=== PATIENT | male | born 1960 | race Caucasian/White ===

== ENCOUNTER 2016-06-09 19:28 | Emergency (ER) | payer OTHER ==
[~2016-06-09] VITALS: Ht 177.8 cm; Wt 85.0 kg
[~2016-06-09 19:28] MED LIST: ASPIR 8181 M1 PO; ATARAX,VISTARIL25 MG PO; ATARAX,VISTARIL50 MG PO; ATENOLOL; ATENOLOL100 MG PO; ATENOLOL25 MG PO; ATIVAN0.5 MG PO; ATIVAN1 MG PO; ATIVAN2 MG PO; Aspirin PO; BACLOFEN10 MG PO; CLONAZEPAM1 MG PO; DEXILANT60 MG PO; DURAGESIC75 MCG TD; FLEXERIL10 MG PO; KEPPRA750 MG PO; KLONOPIN1 MG PO; Keppra PO; LIBRIUM25 MG PO; LIDODERM 5% P1 PATCH TD; LISINOPRIL2.5 MG PO; LISINOPRIL20 MG PO; LISINOPRIL40 MG PO; LITE COAT ASPI325 M1 PO; LORAZEPAM1 MG PO; LYRICA100 MG PO; LYRICA150 MG PO; LYRICA50 MG PO; LYRICA75 MG PO; MEDROL DOSEPAK4 MG PO; MEN'S MULTI-VI1 EACH PO; MIRTAZAPINE30 MG PO; MOBIC7.5 MG PO; MULTIPLE VITAM1 EACH PO; NEXIUM20 MG PO; OXYCODONE HCL10 MG PO; OXYCODONE HCL5 MG PO; PERCOCET 10/1 TABLET PO; PERCOCET 5/31 TABLET PO; PREVACID30 MG PO; PROAIR HFA8.5 GM IH; PriLOSEC PO; RANITIDINE HCL150 MG PO; REMERON15 M2 PO; REMERON30 M2 PO; ROXICODONE5 MG PO; SERTRALINE HCL100 MG PO; SKELAXIN800 MG PO; TENORMIN25 MG PO; TRAZODONE HCL100 MG PO; TRAZODONE HCL50 MG PO; TYLENOL WITH C1 EACH PO; ULTRAM50 MG PO; WELLBUTRIN SR100 MG PO; Wellbutrin SR PO; XANAX0.25 MG PO; ZANAFLEX2 MG PO; ZANTAC150 MG PO; ZOFRAN ODT4 MG PO; ZOFRAN ODT8 MG PO; ZOFRAN4 MG PO; ZOFRAN8 MG PO; ZOLOFT100 MG PO; Zestril,Prinivil PO
[2016-06-09 21:23] VITALS: BP 175/858
== END 2016-06-09 21:29 | disposition home or self-care (01) ==
LOC: EME 19:28
DX: M54.9 Dorsalgia, unspecified (principal); G89.29 Other chronic pain; I10 Essential (primary) hypertension; F17.200 Nicotine dependence, unspecified, uncomplicated; Z76.0 Encounter for issue of repeat prescription; Z88.6 Allergy status to analgesic agent
CPT/HCPCS: 99281; 99284

== ENCOUNTER → 2016-06-27 17:31 | Emergency (ER) | payer OTHER ==
[~2016-06-27] VITALS: Ht 177.8 cm; Wt 90.1 kg
[~2016-06-27 17:31] MED LIST changes: +PEPCID20 MG PO
[2016-06-27 18:20] VITALS: BP 117/93
[2016-06-27 18:42] LABS: HEMATOCRIT 39.8 % (38.0-50.0); MCHC 33.9 G/DL (30.0-36.0); MCV 82.6 FL (86-99); PLATELET COUNT 244 K/uL (156-360); RBC DIS.WIDTH-CV 14.5 % (11.8-14.6); RBC DIS.WIDTH-SD 43.1 % (39-53); RED BLOOD COUNT 4.82 M/uL (4.00-5.50); WHITE BLOOD COUNT 7.6 K/uL (4.1-10.2)
[2016-06-27 18:57] LABS: CHLORIDE 103 mEq/L (99-109); POTASSIUM 4.3 mEq/L (3.7-5.4); SODIUM 134 mEq/L (136-147)
[2016-06-27 18:59] LABS: GLUCOSE 113 mg/dL (70-99)
[2016-06-27 19:01] LABS: ANION GAP 11 MEQ/L (2-14)
[2016-06-27 19:02] LABS: TROP-I INTERPRETATION NEGATIVE; TROPONIN-I < 0.01 ng/mL (0.0-0.30)
[2016-06-27 19:03] LABS: GFR ESTIMATE (CALCULATED) > 59 mL/min/
[2016-06-27 19:04] LABS: UREA NITROGEN (BUN) 7 mg/dL (9-23)
== END | disposition left against medical advice (07) ==
LOC: EME 17:31
DX: R07.89 Other chest pain (principal); R06.89 Other abnormalities of breathing; Z53.21 Procedure and treatment not carried out due to patient leaving prior to being seen by health care provider
CPT/HCPCS: 71020; 80048; 84484; 85027; 93005

== ENCOUNTER 2016-07-01 19:58 | Emergency (ER) | payer OTHER ==
[~2016-07-01] VITALS: Ht 177.8 cm; Wt 88.6 kg
[~2016-07-01 19:58] MED LIST changes: -PEPCID20 MG PO
[2016-07-01 20:43] LABS: HEMATOCRIT 40.2 % (38.0-50.0); MCH 28.5 PG (29.0-34.0); MCHC 35.6 G/DL (30.0-36.0); MCV 80.2 FL (86-99); MEAN PLAT.VOLUME 10.3 uM^3 (9.0-12.4); PLATELET COUNT 233 K/uL (156-360); RBC DIS.WIDTH-CV 14.2 % (11.8-14.6); RED BLOOD COUNT 5.01 M/uL (4.00-5.50); WHITE BLOOD COUNT 7.1 K/uL (4.1-10.2)
[2016-07-01 20:53] LABS: CHLORIDE 104 mEq/L (99-109); POTASSIUM 3.9 mEq/L (3.7-5.4); SODIUM 136 mEq/L (136-147)
[2016-07-01 20:55] LABS: GLUCOSE 102 mg/dL (70-99)
[2016-07-01 20:56] LABS: ANION GAP 13 MEQ/L (2-14)
[2016-07-01 20:59] LABS: GFR ESTIMATE (CALCULATED) > 59 mL/min/
[2016-07-01 21:00] LABS: UREA NITROGEN (BUN) 7 mg/dL (9-23)
[2016-07-01 21:03] LABS: TROP-I INTERPRETATION NEGATIVE; TROPONIN-I < 0.01 ng/mL (0.0-0.30)
[2016-07-01] MEDS ORDERED: PEPCID20 MG PO (21:12)
[2016-07-01] MEDS ORDERED: LIBRIUM25 MG PO (21:12)
[2016-07-01 21:45] VITALS: BP 165/111
== END 2016-07-01 22:00 | disposition home or self-care (01) ==
LOC: EME → EDBD 19:58 → EME 19:58
PROVIDERS: Emergency Medicine
DX: G89.29 Other chronic pain (principal); F41.9 Anxiety disorder, unspecified; Z76.0 Encounter for issue of repeat prescription; R73.9 Hyperglycemia, unspecified; R11.2 Nausea with vomiting, unspecified; F17.200 Nicotine dependence, unspecified, uncomplicated
CPT/HCPCS: 80048; 84484; 85027; 93005; 99281; 99284

== ENCOUNTER 2016-07-17 21:28 | Emergency (ER) | payer OTHER ==
[~2016-07-17] VITALS: Ht 177.8 cm; Wt 86.0 kg
[~2016-07-17 21:28] MED LIST changes: +PEPCID20 MG PO
[2016-07-17] MEDS ORDERED: ATENOLOL100 MG PO (21:49)
[2016-07-17] MEDS ORDERED: LISINOPRIL40 MG PO (21:49)
[2016-07-17] MEDS ORDERED: OXYCONTIN10 MG PO (21:50)
[2016-07-17] MEDS ORDERED: OXYCODONE HCL5 MG PO (21:50)
[2016-07-17] MEDS ORDERED: LYRICA100 MG PO (21:51)
[2016-07-17] MEDS ORDERED: PANTOPRAZOLE SO40 MG PO (21:51)
[2016-07-17] MEDS ORDERED: RANITIDINE HCL150 MG PO (21:52)
[2016-07-17] MEDS ORDERED: MIRTAZAPINE45 MG PO (21:52)
[2016-07-17 22:09] VITALS: BP 175/113
== END 2016-07-17 22:11 | disposition home or self-care (01) ==
LOC: EME 21:28
DX: G62.9 Polyneuropathy, unspecified (principal); M79.1 Myalgia; G89.29 Other chronic pain; I10 Essential (primary) hypertension; F17.200 Nicotine dependence, unspecified, uncomplicated; Z88.6 Allergy status to analgesic agent
CPT/HCPCS: 99281; 99284; J3010

== ENCOUNTER 2016-07-19 01:48 | Emergency (ER) | payer OTHER ==
[~2016-07-19] VITALS: Ht 177.8 cm; Wt 86.0 kg
[~2016-07-19 01:48] MED LIST changes: +MIRTAZAPINE45 MG PO; +OXYCONTIN10 MG PO; +PANTOPRAZOLE SO40 MG PO
[2016-07-19 03:35] VITALS: BP 179/112
== END 2016-07-19 03:37 | disposition home or self-care (01) ==
LOC: EME 01:48
DX: G89.29 Other chronic pain (principal); M79.604 Pain in right leg; M79.605 Pain in left leg; I10 Essential (primary) hypertension; F41.9 Anxiety disorder, unspecified; Z79.891 Long term (current) use of opiate analgesic; F17.200 Nicotine dependence, unspecified, uncomplicated
CPT/HCPCS: 99281; 99284

== ENCOUNTER 2016-09-14 22:28 | Emergency (ER) | payer OTHER ==
[~2016-09-14] VITALS: Ht 177.8 cm; Wt 87.0 kg
[2016-09-14 23:47] VITALS: BP 193/109
== END 2016-09-14 23:48 | disposition home or self-care (01) ==
LOC: RME 22:28 → EME 22:28 → RME 23:48
DX: F41.9 Anxiety disorder, unspecified (principal); I10 Essential (primary) hypertension; K21.9 Gastro-esophageal reflux disease without esophagitis; F17.200 Nicotine dependence, unspecified, uncomplicated
CPT/HCPCS: 99281; 99283

== ENCOUNTER 2016-10-10 23:50 | Emergency (ER) | payer OTHER ==
[~2016-10-10] VITALS: Ht 177.8 cm; Wt 87.9 kg
[2016-10-11 00:34] LABS: HEMATOCRIT 39.3 % (38.0-50.0); MCH 29.2 PG (29.0-34.0); MCHC 35.6 G/DL (30.0-36.0); MEAN PLAT.VOLUME 10.7 uM^3 (9.0-12.4); PLATELET COUNT 184 K/uL (156-360); RBC DIS.WIDTH-SD 41.6 % (39-53); RED BLOOD COUNT 4.79 M/uL (4.00-5.50); WHITE BLOOD COUNT 8.3 K/uL (4.1-10.2)
[2016-10-11 00:48] LABS: CHLORIDE 98 mEq/L (99-109); POTASSIUM 3.7 mEq/L (3.7-5.4); SODIUM 130 mEq/L (136-147)
[2016-10-11 00:50] LABS: GLUCOSE 103 mg/dL (70-99)
[2016-10-11 00:51] LABS: ANION GAP 11 MEQ/L (2-14)
[2016-10-11 00:53] LABS: SERUM ETHYL ALCOHOL < 10 mg/dL
[2016-10-11 00:54] LABS: GFR ESTIMATE (CALCULATED) > 59 mL/min/
[2016-10-11 00:56] LABS: UREA NITROGEN (BUN) 4 mg/dL (9-23)
[2016-10-11 00:57] LABS: SALICYLATE < 5.0 MG/DL (15-30)
[2016-10-11 02:15] LABS: AMPHETAMINE NEGATIVE (500 ng/mL); BARBITURATES NEGATIVE (200 ng/mL); BENZODIAZEPINES PRESUMPTIVE POSITIVE (150 ng/mL); COCAINE NEGATIVE (150 ng/mL); INTERNAL CONTROLS VALID? YES; METHADONE NEGATIVE (200 ng/mL); METHAMPHETAMINE NEGATIVE (500 ng/mL); OPIATES (MORPHINE) NEGATIVE (100 ng/mL); OXYCODONE NEGATIVE (100 ng/mL); PHENCYCLIDINE NEGATIVE (25 ng/mL); PROPOXYPHENE NEGATIVE (300 ng/mL); THC CANNABINOIDS NEGATIVE (50 ng/mL); TRICYCLIC ANTIDEPRESSANTS NEGATIVE (300 ng/mL)
[2016-10-11 02:16] LABS: ADD MEDTOX COMMENT Y
[2016-10-11 02:50] VITALS: BP 153/102
[2016-10-11 03:19] LABS: BENZODIAZEPINES QUANT VALUE 0 NG/ML
[2016-10-11 03:22] LABS: BENZODIAZEPINES, URINE SCREEN Negative (200 ng/mL)
== END 2016-10-11 02:51 | disposition home or self-care (01) ==
LOC: EME 23:50
PROVIDERS: Emergency Medicine
DX: T42.4X1A Poisoning by benzodiazepines, accidental (unintentional), initial encounter (principal); E87.1 Hypo-osmolality and hyponatremia; I10 Essential (primary) hypertension; F17.200 Nicotine dependence, unspecified, uncomplicated; K21.9 Gastro-esophageal reflux disease without esophagitis; F41.0 Panic disorder [episodic paroxysmal anxiety]; G62.9 Polyneuropathy, unspecified; F32.9 Major depressive disorder, single episode, unspecified; G89.29 Other chronic pain; Z79.891 Long term (current) use of opiate analgesic; R47.9 Unspecified speech disturbances
CPT/HCPCS: 71010; 80048; 84999; 85027; 93005; 99281; 99284; G0480; J7030

== ENCOUNTER 2016-10-11 17:34 | Emergency (ER) | payer OTHER ==
[~2016-10-11] VITALS: Ht 177.8 cm; Wt 85.7 kg
[2016-10-11 19:42] VITALS: BP 177/88
== END 2016-10-11 19:43 | disposition home or self-care (01) ==
LOC: EME 17:34
DX: F41.9 Anxiety disorder, unspecified (principal); F13.239 Sedative, hypnotic or anxiolytic dependence with withdrawal, unspecified; I10 Essential (primary) hypertension; G89.29 Other chronic pain; Z79.891 Long term (current) use of opiate analgesic; F17.200 Nicotine dependence, unspecified, uncomplicated
CPT/HCPCS: 93005; 99281; 99284

== ENCOUNTER 2016-10-28 22:26 | Inpatient (IN) | payer OTHER ==
[~2016-10-28] VITALS: Ht 177.8 cm; Wt 85.0 kg
[2016-10-28 23:08] LABS: MCHC 35.2 G/DL (30.0-36.0); MCV 82.2 FL (86-99); MEAN PLAT.VOLUME 10.4 uM^3 (9.0-12.4); PLATELET COUNT 282 K/uL (156-360); RBC DIS.WIDTH-CV 13.4 % (11.8-14.6); RBC DIS.WIDTH-SD 39.8 % (39-53); RED BLOOD COUNT 5.11 M/uL (4.00-5.50); WHITE BLOOD COUNT 7.2 K/uL (4.1-10.2)
[2016-10-28 23:15] LABS: CHLORIDE 103 mEq/L (99-109); SODIUM 136 mEq/L (136-147)
[2016-10-28 23:17] LABS: GLUCOSE 100 mg/dL (70-99)
[2016-10-28 23:18] LABS: ANION GAP 12 MEQ/L (2-14)
[2016-10-28 23:20] LABS: SERUM ETHYL ALCOHOL < 10 mg/dL
[2016-10-28 23:21] LABS: GFR ESTIMATE (CALCULATED) > 59 mL/min/
[2016-10-28 23:23] LABS: UREA NITROGEN (BUN) 6 mg/dL (9-23)
[2016-10-28 23:24] LABS: SALICYLATE < 5.0 MG/DL (15-30)
[2016-10-28 23:43] LABS: AMPHETAMINE NEGATIVE (500 ng/mL); BARBITURATES NEGATIVE (200 ng/mL); BENZODIAZEPINES PRESUMPTIVE POSITIVE (150 ng/mL); COCAINE NEGATIVE (150 ng/mL); INTERNAL CONTROLS VALID? YES; METHADONE NEGATIVE (200 ng/mL); METHAMPHETAMINE NEGATIVE (500 ng/mL); OPIATES (MORPHINE) NEGATIVE (100 ng/mL); OXYCODONE NEGATIVE (100 ng/mL); PHENCYCLIDINE NEGATIVE (25 ng/mL); PROPOXYPHENE NEGATIVE (300 ng/mL); THC CANNABINOIDS NEGATIVE (50 ng/mL); TRICYCLIC ANTIDEPRESSANTS NEGATIVE (300 ng/mL)
[2016-10-28 23:44] LABS: ADD MEDTOX COMMENT Y
[2016-10-29 01:25] LABS: BENZODIAZEPINES QUANT VALUE 0 NG/ML; BENZODIAZEPINES, URINE SCREEN Negative (200 ng/mL)
[2016-10-29 06:29] VITALS: BP 161/107
[2016-10-29 07:47] VITALS: BP 159/90
[2016-10-29 15:15] VITALS: BP 132/84
[2016-10-30 07:27] VITALS: BP 171/103
[2016-10-30 11:26] LABS: CHLORIDE 111 mEq/L (99-109); SODIUM 142 mEq/L (136-147)
[2016-10-30 11:28] LABS: GLUCOSE 93 mg/dL (70-99)
[2016-10-30 11:29] LABS: ANION GAP 11 MEQ/L (2-14)
[2016-10-30 11:30] LABS: POTASSIUM 3.9 mEq/L (3.7-5.4); TOTAL BILIRUBIN 0.4 mg/dL (0.0-1.0)
[2016-10-30 11:32] LABS: ALKALINE PHOSPHATASE 91 IU/L (3-129); GFR ESTIMATE (CALCULATED) > 59 mL/min/
[2016-10-30 11:33] LABS: UREA NITROGEN (BUN) 7 mg/dL (9-23)
[2016-10-30 11:34] LABS: DIRECT BILIRUBIN 0.1 mg/dL (0.0-0.3)
[2016-10-30 15:41] VITALS: BP 136/79
[2016-10-31 07:39] VITALS: BP 202/98
[2016-10-31 07:40] VITALS: BP 194/84
[2016-10-31] MEDS ORDERED: DULOXETINE HCL30 MG PO (10:00)
== END 2016-10-31 10:51 | disposition home or self-care (01) | DRG 885 ==
LOC: EME → EDBD 22:26 → 1WEST 10-29 03:49 → EDOF 10-29 03:49 → 1WEST 10-29 05:36
PROVIDERS: Emergency Medicine; Nurse Practitioner Family
DX: F33.9 Major depressive disorder, recurrent, unspecified (principal); G89.4 Chronic pain syndrome; T42.4X1A Poisoning by benzodiazepines, accidental (unintentional), initial encounter; I10 Essential (primary) hypertension; F11.20 Opioid dependence, uncomplicated; F10.21 Alcohol dependence, in remission; F41.1 Generalized anxiety disorder; F41.0 Panic disorder [episodic paroxysmal anxiety]; K21.9 Gastro-esophageal reflux disease without esophagitis; G62.9 Polyneuropathy, unspecified; Z73.6 Limitation of activities due to disability; F19.10 Other psychoactive substance abuse, uncomplicated; M19.90 Unspecified osteoarthritis, unspecified site; Z91.018 Allergy to other foods; Z87.11 Personal history of peptic ulcer disease; Z60.2 Problems related to living alone
CPT/HCPCS: 71010; 80048; 80053; 82248; 84999; 85027; 90837; 93005; 97165 GO; 99281; 99285; G0480; J7030; Q0177

== ENCOUNTER 2016-12-13 09:09 | Emergency (ER) | payer OTHER ==
[~2016-12-13] VITALS: Ht 177.8 cm; Wt 81.3 kg
[~2016-12-13 09:09] MED LIST changes: +DULOXETINE HCL30 MG PO
[2016-12-13 10:36] LABS: HEMATOCRIT 44.6 % (38.0-50.0); MCH 28.7 PG (29.0-34.0); MEAN PLAT.VOLUME 10.3 uM^3 (9.0-12.4); PLATELET COUNT 294 K/uL (156-360); RBC DIS.WIDTH-CV 13.5 % (11.8-14.6); RED BLOOD COUNT 5.44 M/uL (4.00-5.50); WHITE BLOOD COUNT 10.4 K/uL (4.1-10.2)
[2016-12-13 11:11] LABS: ANION GAP 16 MEQ/L (2-14); CHLORIDE 96 MEQ/L (99-109); POTASSIUM 3.8 MEQ/L (3.7-5.4); SAMPLE HEMOLYSIS CHECK 0; SAMPLE ICTERIC CHECK 0; SAMPLE LIPEMIA CHECK 0; SODIUM 131 MEQ/L (136-147)
[2016-12-13 11:16] LABS: GFR ESTIMATE (CALCULATED) > 59 mL/min/; GLUCOSE 103 mg/dL (70-99); UREA NITROGEN (BUN) 6 mg/dL (9-23)
[2016-12-13 11:20] LABS: TROP-I INTERPRETATION NEGATIVE; TROPONIN-I 0.04 ng/mL (0.0-0.30)
[2016-12-13 13:17] LABS: D-DIMER ELISA 0.34 mg/L FEU (< 0.57)
[2016-12-13] MEDS ORDERED: LIBRIUM25 MG PO (13:54)
[2016-12-13 14:58] VITALS: BP 136/97
== END 2016-12-13 14:58 | disposition home or self-care (01) ==
LOC: EME 09:09
PROVIDERS: Emergency Medicine
DX: F10.239 Alcohol dependence with withdrawal, unspecified (principal); R00.0 Tachycardia, unspecified; F11.10 Opioid abuse, uncomplicated; K21.9 Gastro-esophageal reflux disease without esophagitis; F17.200 Nicotine dependence, unspecified, uncomplicated
CPT/HCPCS: 80048; 84484; 85027; 85379; 93005; 99281; 99285; J1630; J2060; J2405; J7030

== ENCOUNTER 2017-01-02 13:16 | Emergency (ER) | payer OTHER ==
[~2017-01-02] VITALS: Ht 177.8 cm; Wt 63.5 kg
[2017-01-02] MEDS ORDERED: OXYCODONE HCL10 MG PO (13:34)
[2017-01-02] MEDS ORDERED: ATIVAN1 MG PO (16:58)
[2017-01-02 16:59] VITALS: BP 121/91
== END 2017-01-02 17:01 | disposition home or self-care (01) ==
LOC: EME 13:16
DX: F41.9 Anxiety disorder, unspecified (principal); Z76.0 Encounter for issue of repeat prescription; I10 Essential (primary) hypertension; F17.200 Nicotine dependence, unspecified, uncomplicated
CPT/HCPCS: 99281; 99284

== ENCOUNTER 2017-01-04 12:11 | Emergency (ER) | payer OTHER ==
[~2017-01-04] VITALS: Ht 170.2 cm; Wt 80.3 kg
[2017-01-04 12:58] LABS: BASOPHIL COUNT 0.1 K/uL (0-0.1); EOSINOPHIL (%) 0.3 % (0-5); HEMATOCRIT 48.2 % (38.0-50.0); IMMATURE GRANULOCYTE (%) 0.4 % (0.0-0.7); IMMATURE GRANULOCYTE COUNT 0.1 K/uL; INSTRUMENT ABS NEUTROPHIL CT 9.2 K/uL; LYMPHOCYTE COUNT 1.6 K/uL (1.0-2.8); MCH 29.3 PG (29.0-34.0); MCHC 34.6 G/DL (30.0-36.0); MCV 84.6 FL (86-99); MEAN PLAT.VOLUME 10.8 uM^3 (9.0-12.4); MONOCYTE (%) 5.7 % (3-12); MONOCYTE COUNT 0.7 K/uL (0-0.8); NEUTROPHIL (%) 79.2 % (45-76); NEUTROPHIL COUNT 9.2 K/uL (1.8-6.4); PLATELET COUNT 322 K/uL (156-360); RBC DIS.WIDTH-CV 14.6 % (11.8-14.6); RBC DIS.WIDTH-SD 44.9 % (39-53); WHITE BLOOD COUNT 11.7 K/uL (4.1-10.2)
[2017-01-04 13:06] LABS: CHLORIDE 104 mEq/L (99-109); POTASSIUM 3.1 mEq/L (3.7-5.4); SODIUM 139 mEq/L (136-147)
[2017-01-04 13:08] LABS: GLUCOSE 127 mg/dL (70-99)
[2017-01-04 13:09] LABS: ANION GAP 15 MEQ/L (2-14)
[2017-01-04 13:11] LABS: SERUM ETHYL ALCOHOL < 10 mg/dL
[2017-01-04 13:12] LABS: GFR ESTIMATE (CALCULATED) > 59 mL/min/
[2017-01-04 13:13] LABS: UREA NITROGEN (BUN) 8 mg/dL (9-23)
[2017-01-04] MEDS ORDERED: MULTIVITAMIN1 EAC2 PO (13:14)
[2017-01-04] MEDS ORDERED: ASPIRIN325 MG PO (13:14)
[2017-01-04 13:47] LABS: ADD MIUA? YES; BILIRUBIN NEGATIVE; BLOOD NEGATIVE; COLOR YELLOW ((YELLOW)); GLUCOSE (STRIP) NEGATIVE; KETONES NEGATIVE; LEUKOCYTES NEGATIVE; NITRITE NEGATIVE; PROTEIN (STRIP) NEGATIVE; SPECIFIC GRAVITY 1.013 (1.000-1.030); UROBILINOGEN 0.2 MG/DL (0.2-1.0)
[2017-01-04 14:00] LABS: BACTERIA 2+ /HPF; EPITHELIAL CELLS RARE /HPF; HYALINE CASTS 0-5 /LPF; MUCUS 3+ /LPF; RED BLOOD CELLS 0-5 /HPF (0-5); WHITE BLOOD CELLS NONE SEEN /HPF (0-5)
[2017-01-04] MEDS ORDERED: ATIVAN0.5 MG PO (14:10)
[2017-01-04 14:17] LABS: AMPHETAMINE NEGATIVE (500 ng/mL); BARBITURATES NEGATIVE (200 ng/mL); BENZODIAZEPINES PRESUMPTIVE POSITIVE (150 ng/mL); COCAINE NEGATIVE (150 ng/mL); METHADONE NEGATIVE (200 ng/mL); METHAMPHETAMINE NEGATIVE (500 ng/mL); OPIATES (MORPHINE) NEGATIVE (100 ng/mL); PHENCYCLIDINE NEGATIVE (25 ng/mL); THC CANNABINOIDS NEGATIVE (50 ng/mL); TRICYCLIC ANTIDEPRESSANTS NEGATIVE (300 ng/mL)
[2017-01-04 14:18] LABS: ADD MEDTOX COMMENT Y; INTERNAL CONTROLS VALID? YES; OXYCODONE PRESUMPTIVE POSITIVE (100 ng/mL); PROPOXYPHENE NEGATIVE (300 ng/mL)
[2017-01-04 14:22] VITALS: BP 141/101
[2017-01-04 15:05] LABS: BENZODIAZEPINES, URINE SCREEN POSITIVE (200 ng/mL)
== END 2017-01-04 14:22 | disposition home or self-care (01) ==
LOC: EME 12:11
PROVIDERS: Emergency Medicine
DX: F41.1 Generalized anxiety disorder (principal); F32.9 Major depressive disorder, single episode, unspecified; E87.6 Hypokalemia; K21.9 Gastro-esophageal reflux disease without esophagitis; Z86.73 Personal history of transient ischemic attack (TIA), and cerebral infarction without residual deficits; F17.200 Nicotine dependence, unspecified, uncomplicated
CPT/HCPCS: 80048; 81003; 84999; 85025; 90839; 99281; 99284; G0480

== ENCOUNTER 2017-01-26 15:53 | Emergency (ER) | payer OTHER ==
[~2017-01-26] VITALS: Ht 177.8 cm; Wt 81.6 kg
[~2017-01-26 15:53] MED LIST changes: +ASPIRIN325 MG PO; +MULTIVITAMIN1 EAC2 PO
[2017-01-26] MEDS ORDERED: PEPCID40 MG PO (18:35)
[2017-01-26 18:50] VITALS: BP 172/104
[2017-01-27] MEDS ORDERED: LIBRIUM25 MG PO (21:31)
== END 2017-01-26 18:57 | disposition home or self-care (01) ==
LOC: EME 15:53
DX: F11.23 Opioid dependence with withdrawal (principal); Z76.5 Malingerer [conscious simulation]; Z86.73 Personal history of transient ischemic attack (TIA), and cerebral infarction without residual deficits; K21.9 Gastro-esophageal reflux disease without esophagitis; Z79.82 Long term (current) use of aspirin; Z79.891 Long term (current) use of opiate analgesic; F17.200 Nicotine dependence, unspecified, uncomplicated
CPT/HCPCS: 99281; 99283

== ENCOUNTER 2017-01-27 18:24 | Emergency (ER) | payer OTHER ==
[~2017-01-27] VITALS: Ht 177.8 cm; Wt 82.6 kg
[~2017-01-27 18:24] MED LIST changes: +PEPCID40 MG PO
[2017-01-27] MEDS ORDERED: LIBRIUM25 MG PO (21:31)
[2017-01-27 22:08] VITALS: BP 191/86
== END 2017-01-27 22:08 | disposition home or self-care (01) ==
LOC: EME 18:24
DX: F10.239 Alcohol dependence with withdrawal, unspecified (principal); E86.0 Dehydration; I10 Essential (primary) hypertension; K21.9 Gastro-esophageal reflux disease without esophagitis; G62.9 Polyneuropathy, unspecified; F32.9 Major depressive disorder, single episode, unspecified; F41.9 Anxiety disorder, unspecified; Z86.73 Personal history of transient ischemic attack (TIA), and cerebral infarction without residual deficits; F17.200 Nicotine dependence, unspecified, uncomplicated
CPT/HCPCS: 99281; 99285; J2060; J7030

== ENCOUNTER 2017-01-29 14:16 | Emergency (ER) | payer OTHER ==
[~2017-01-29] VITALS: Ht 177.8 cm; Wt 81.0 kg
[2017-01-29 15:35] LABS: HEMATOCRIT 43.5 % (38.0-50.0); MCH 28.9 PG (29.0-34.0); MCHC 35.4 G/DL (30.0-36.0); MCV 81.8 FL (86-99); MEAN PLAT.VOLUME 10.5 uM^3 (9.0-12.4); PLATELET COUNT 256 K/uL (156-360); RBC DIS.WIDTH-CV 13.9 % (11.8-14.6); RBC DIS.WIDTH-SD 40.7 % (39-53); RED BLOOD COUNT 5.32 M/uL (4.00-5.50); WHITE BLOOD COUNT 15.1 K/uL (4.1-10.2)
[2017-01-29 15:45] LABS: CHLORIDE 100 mEq/L (99-109); POTASSIUM 2.5 mEq/L (3.7-5.4); SODIUM 138 mEq/L (136-147)
[2017-01-29 15:47] LABS: GLUCOSE 95 mg/dL (70-99)
[2017-01-29 15:48] LABS: ANION GAP 17 MEQ/L (2-14)
[2017-01-29 15:49] LABS: TOTAL BILIRUBIN 0.9 mg/dL (0.0-1.0)
[2017-01-29 15:50] LABS: ALKALINE PHOSPHATASE 124 IU/L (3-129)
[2017-01-29 15:51] LABS: GFR ESTIMATE (CALCULATED) > 59 mL/min/
[2017-01-29 15:52] LABS: UREA NITROGEN (BUN) 5 mg/dL (9-23)
[2017-01-29 15:54] LABS: LIPASE 11 U/L (1.0-51.0)
[2017-01-29 16:00] LABS: TROP-I INTERPRETATION NEGATIVE; TROPONIN-I 0.02 ng/mL (0.0-0.30)
[2017-01-29 18:12] VITALS: BP 169/94
== END 2017-01-29 18:14 | disposition home or self-care (01) ==
LOC: EME 14:16
DX: F10.239 Alcohol dependence with withdrawal, unspecified (principal); E86.0 Dehydration; R10.9 Unspecified abdominal pain; E87.6 Hypokalemia; E87.2 Acidosis; K21.9 Gastro-esophageal reflux disease without esophagitis; G62.9 Polyneuropathy, unspecified; Z86.73 Personal history of transient ischemic attack (TIA), and cerebral infarction without residual deficits; F17.200 Nicotine dependence, unspecified, uncomplicated
CPT/HCPCS: 80053; 83690; 84484; 85027; 93005; 99281; 99285; J3360; J7030

== ENCOUNTER 2017-02-19 03:40 | Observation (INO) | payer OTHER ==
[~2017-02-19] VITALS: Ht 177.8 cm; Wt 84.6 kg
[2017-02-19 05:19] LABS: CHLORIDE 86 mEq/L (99-109)
[2017-02-19 05:22] LABS: GLUCOSE 111 mg/dL (70-99)
[2017-02-19 05:23] LABS: ANION GAP 11 MEQ/L (2-14)
[2017-02-19 05:24] LABS: TOTAL BILIRUBIN 0.6 mg/dL (0.0-1.0)
[2017-02-19 05:25] LABS: ALKALINE PHOSPHATASE 125 IU/L (3-129); GFR ESTIMATE (CALCULATED) > 59 mL/min/
[2017-02-19 05:26] LABS: UREA NITROGEN (BUN) 2 mg/dL (9-23)
[2017-02-19 05:29] LABS: LIPASE 10 U/L (1.0-51.0); POTASSIUM 3.8 mEq/L (3.7-5.4)
[2017-02-19 05:31] LABS: TROP-I INTERPRETATION NEGATIVE; TROPONIN-I < 0.01 ng/mL (0.0-0.30)
[2017-02-19 05:34] LABS: SODIUM 118 mEq/L (136-147)
[2017-02-19 05:43] LABS: MCH 29.7 PG (29.0-34.0); MCHC 37.2 G/DL (30.0-36.0); MCV 79.9 FL (86-99); MEAN PLAT.VOLUME 10.7 uM^3 (9.0-12.4); PLATELET COUNT 264 K/uL (156-360); RBC DIS.WIDTH-CV 13.2 % (11.8-14.6); RBC DIS.WIDTH-SD 38.3 % (39-53); RED BLOOD COUNT 4.88 M/uL (4.00-5.50); WHITE BLOOD COUNT 13.8 K/uL (4.1-10.2)
[2017-02-19 10:21] LABS: ADD MIUA? YES; BILIRUBIN NEGATIVE; BLOOD SMALL; COLOR STRAW ((YELLOW)); GLUCOSE (STRIP) NEGATIVE; KETONES NEGATIVE; LEUKOCYTES NEGATIVE; NITRITE NEGATIVE; PROTEIN (STRIP) NEGATIVE; SPECIFIC GRAVITY 1.003 (1.000-1.030); UROBILINOGEN 0.2 MG/DL (0.2-1.0)
[2017-02-19 10:41] LABS: BACTERIA NONE SEEN /HPF; EPITHELIAL CELLS NONE SEEN /HPF; MUCUS NONE SEEN /LPF; RED BLOOD CELLS RARE /HPF (0-5); UCUL ADDED? NO; WHITE BLOOD CELLS NONE SEEN /HPF (0-5)
[2017-02-19 11:04] VITALS: BP 156/79
[2017-02-19] MEDS ORDERED: CYMBALTA30 MG PO (12:07)
[2017-02-19] MEDS ORDERED: BUSPAR10 MG PO (12:09)
[2017-02-19] MEDS ORDERED: CARBAMAZEPINE200 MG PO (12:10)
[2017-02-19] MEDS ORDERED: PAROXETINE HCL20 MG PO (12:10)
[2017-02-19 12:32] VITALS: BP 120/70
[2017-02-19 15:39] VITALS: BP 111/60
[2017-02-19 15:51] LABS: POINT-OF-CARE METER ID UU13113725
[2017-02-19 19:50] VITALS: BP 170/90
[2017-02-20 04:18] VITALS: BP 173/94
[2017-02-20 06:21] LABS: HEMATOCRIT 39.8 % (38.0-50.0); MCH 28.9 PG (29.0-34.0); MCHC 34.7 G/DL (30.0-36.0); MCV 83.3 FL (86-99); MEAN PLAT.VOLUME 10.7 uM^3 (9.0-12.4); PLATELET COUNT 209 K/uL (156-360); RBC DIS.WIDTH-SD 42.6 % (39-53); RED BLOOD COUNT 4.78 M/uL (4.00-5.50)
[2017-02-20 06:47] LABS: ANION GAP 10 MEQ/L (2-14); CHLORIDE 99 MEQ/L (99-109); GFR ESTIMATE (CALCULATED) > 59 mL/min/; POTASSIUM 3.8 MEQ/L (3.7-5.4); SAMPLE HEMOLYSIS CHECK 0; SAMPLE ICTERIC CHECK 0; SAMPLE LIPEMIA CHECK 0; UREA NITROGEN (BUN) 2 mg/dL (9-23)
[2017-02-20 06:48] LABS: GLUCOSE 78 mg/dL (70-99); SODIUM 133 MEQ/L (136-147)
[2017-02-20 07:53] VITALS: BP 103/51
[2017-02-20] MEDS ORDERED: NICOTINE PATCH1 EAC2 TD (10:39)
[2017-02-20] MEDS ORDERED: ASPIRIN81 M2 PO (10:40)
[2017-02-20 11:17] LABS: AMPHETAMINES QUANT VALUE 0 NG/ML; BARBITUATES QUANT VALUE 0 NG/ML; BENZODIAZEPINES QUANT VALUE 0 NG/ML; BENZODIAZEPINES, URINE SCREEN Negative (200 ng/mL); MARIJUANA QUANT VALUE 0 NG/ML; OPIATES QUANTITATIVE VALUE 0 NG/ML; PHENCYCLIDINE QUANT VALUE 0 NG/ML
[2017-02-20 11:23] VITALS: BP 171/89
[2017-02-20 12:18] VITALS: BP 138/81
== END 2017-02-20 15:23 | disposition home or self-care (01) ==
LOC: EME → EDBD 03:40 → EME 03:40 → EDOF 07:43 → 5EAST 07:43 → ENRESERV 07:50 → CANRESERV 07:50 → ENRESERV 08:20 → 5EAST 10:36
PROVIDERS: Emergency Medicine; Internal Medicine
DX: R10.9 Unspecified abdominal pain (principal); R11.2 Nausea with vomiting, unspecified; R19.7 Diarrhea, unspecified; E87.1 Hypo-osmolality and hyponatremia; R51 Headache; G62.9 Polyneuropathy, unspecified; G89.29 Other chronic pain; M54.9 Dorsalgia, unspecified; Z79.891 Long term (current) use of opiate analgesic; I10 Essential (primary) hypertension; K21.9 Gastro-esophageal reflux disease without esophagitis; J44.9 Chronic obstructive pulmonary disease, unspecified; F17.210 Nicotine dependence, cigarettes, uncomplicated; Z87.898 Personal history of other specified conditions; D72.829 Elevated white blood cell count, unspecified; Z88.8 Allergy status to other drugs, medicaments and biological substances; Z91.018 Allergy to other foods; Z86.73 Personal history of transient ischemic attack (TIA), and cerebral infarction without residual deficits
CPT/HCPCS: 70450; 71020; 80048; 80053; 80306 90; 81003; 82436; 82533 91; 82948; 83690; 83930; 83935; 84300; 84443; 84484; 85027; 87040; 87493; 87506; 93005; 99202; 99281; 99285; G0378; J0360; J0780; J1200; J1650; J2270; J2405; J7030; S0028

== ENCOUNTER 2017-03-06 15:06 | Emergency (ER) | payer OTHER ==
[~2017-03-06] VITALS: Ht 177.8 cm; Wt 82.4 kg
[~2017-03-06 15:06] MED LIST changes: +ASPIRIN81 M2 PO; +BUSPAR10 MG PO; +CARBAMAZEPINE200 MG PO; +CYMBALTA30 MG PO; +NICOTINE PATCH1 EAC2 TD; +PAROXETINE HCL20 MG PO
[2017-03-06 15:56] LABS: CHLORIDE 104 mEq/L (99-109); SODIUM 134 mEq/L (136-147)
[2017-03-06 15:58] LABS: GLUCOSE 114 mg/dL (70-99)
[2017-03-06 15:59] LABS: ANION GAP 15 MEQ/L (2-14)
[2017-03-06 16:00] LABS: TOTAL BILIRUBIN 0.5 mg/dL (0.0-1.0)
[2017-03-06 16:01] LABS: ALKALINE PHOSPHATASE 117 IU/L (3-129)
[2017-03-06 16:02] LABS: GFR ESTIMATE (CALCULATED) > 59 mL/min/
[2017-03-06 16:03] LABS: UREA NITROGEN (BUN) 8 mg/dL (9-23)
[2017-03-06 16:05] LABS: LIPASE 17 U/L (1.0-51.0)
[2017-03-06 16:56] LABS: HEMATOCRIT 43.2 % (38.0-50.0); MCH 29.3 PG (29.0-34.0); MCHC 34.7 G/DL (30.0-36.0); MCV 84.4 FL (86-99); MEAN PLAT.VOLUME 11.6 uM^3 (9.0-12.4); PLATELET COUNT 252 K/uL (156-360); RBC DIS.WIDTH-CV 13.7 % (11.8-14.6); RBC DIS.WIDTH-SD 42.5 % (39-53); RED BLOOD COUNT 5.12 M/uL (4.00-5.50); WHITE BLOOD COUNT 8.5 K/uL (4.1-10.2)
[2017-03-06] MEDS ORDERED: ZOFRAN ODT4 MG PO (18:27)
[2017-03-06] MEDS ORDERED: REGLAN10 MG PO (18:27)
[2017-03-06 18:56] VITALS: BP 136/78
== END 2017-03-06 18:58 | disposition home or self-care (01) ==
LOC: EME 15:06
PROVIDERS: Nurse Practitioner Family
DX: R11.2 Nausea with vomiting, unspecified (principal); B34.9 Viral infection, unspecified; R10.9 Unspecified abdominal pain; G89.29 Other chronic pain; Z86.73 Personal history of transient ischemic attack (TIA), and cerebral infarction without residual deficits; G62.9 Polyneuropathy, unspecified; K21.9 Gastro-esophageal reflux disease without esophagitis; F32.9 Major depressive disorder, single episode, unspecified; M19.90 Unspecified osteoarthritis, unspecified site; Z88.8 Allergy status to other drugs, medicaments and biological substances; F17.200 Nicotine dependence, unspecified, uncomplicated; Z87.19 Personal history of other diseases of the digestive system
CPT/HCPCS: 80053; 83690; 85027; 85651; 86140; 99281; 99284; J1200; J1885; J2765; J3010; J7030

== ENCOUNTER 2017-03-07 22:07 | Emergency (ER) | payer OTHER ==
[~2017-03-07] VITALS: Ht 177.8 cm; Wt 81.4 kg
[~2017-03-07 22:07] MED LIST changes: +REGLAN10 MG PO
[2017-03-07 23:44] VITALS: BP 186/104
== END 2017-03-07 23:51 | disposition left against medical advice (07) ==
LOC: EME 22:07
DX: G43.909 Migraine, unspecified, not intractable, without status migrainosus (principal); R00.0 Tachycardia, unspecified; I10 Essential (primary) hypertension; K21.9 Gastro-esophageal reflux disease without esophagitis; F17.200 Nicotine dependence, unspecified, uncomplicated; F32.9 Major depressive disorder, single episode, unspecified; F41.9 Anxiety disorder, unspecified; Z86.73 Personal history of transient ischemic attack (TIA), and cerebral infarction without residual deficits; Z88.8 Allergy status to other drugs, medicaments and biological substances; Z87.19 Personal history of other diseases of the digestive system
CPT/HCPCS: 99281; 99285; J1100; J1200; J1885; J2765; J7030

== ENCOUNTER 2017-03-08 20:03 | Observation (INO) | payer OTHER ==
[~2017-03-08] VITALS: Ht 177.8 cm; Wt 80.2 kg
[2017-03-08 20:59] LABS: EOSINOPHIL (%) 0.1 % (0-5); IMMATURE GRANULOCYTE (%) 0.4 % (0.0-0.7); IMMATURE GRANULOCYTE COUNT 0.1 K/uL; LYMPHOCYTE COUNT 1.1 K/uL (1.0-2.8); MCH 28.9 PG (29.0-34.0); MCV 82.6 FL (86-99); MONOCYTE (%) 7.4 % (3-12); MONOCYTE COUNT 1.4 K/uL (0-0.8); NEUTROPHIL (%) 86.2 % (45-76); PLATELET COUNT 314 K/uL (156-360); RBC DIS.WIDTH-CV 13.6 % (11.8-14.6); RBC DIS.WIDTH-SD 41.1 % (39-53); RED BLOOD COUNT 5.57 M/uL (4.00-5.50); WHITE BLOOD COUNT 18.6 K/uL (4.1-10.2)
[2017-03-08 21:13] LABS: CHLORIDE 100 mEq/L (99-109); SODIUM 136 mEq/L (136-147)
[2017-03-08 21:14] LABS: GLUCOSE 150 mg/dL (70-99)
[2017-03-08 21:16] LABS: ANION GAP 17 MEQ/L (2-14)
[2017-03-08 21:17] LABS: SERUM ETHYL ALCOHOL < 10 mg/dL
[2017-03-08 21:18] LABS: GFR ESTIMATE (CALCULATED) > 59 mL/min/
[2017-03-08 21:19] LABS: UREA NITROGEN (BUN) 3 mg/dL (9-23)
[2017-03-08 21:28] LABS: POTASSIUM 2.9 mEq/L (3.7-5.4)
[2017-03-09 01:01] LABS: HEMATOCRIT 47.4 % (38.0-50.0); MCH 29.1 PG (29.0-34.0); MCV 83.2 FL (86-99); MEAN PLAT.VOLUME 11.4 uM^3 (9.0-12.4); PLATELET COUNT 320 K/uL (156-360); RBC DIS.WIDTH-CV 13.9 % (11.8-14.6); RBC DIS.WIDTH-SD 41.8 % (39-53); WHITE BLOOD COUNT 19.1 K/uL (4.1-10.2)
[2017-03-09 01:12] LABS: ADD MIUA? YES; BILIRUBIN SMALL; BLOOD NEGATIVE; COLOR AMBER ((YELLOW)); GLUCOSE (STRIP) NEGATIVE; KETONES 5; LEUKOCYTES NEGATIVE; NITRITE NEGATIVE; PROTEIN (STRIP) 100
[2017-03-09 01:15] LABS: AMPHETAMINE NEGATIVE (500 ng/mL); BARBITURATES NEGATIVE (200 ng/mL); BENZODIAZEPINES NEGATIVE (150 ng/mL); COCAINE NEGATIVE (150 ng/mL); INTERNAL CONTROLS VALID? YES; METHADONE NEGATIVE (200 ng/mL); METHAMPHETAMINE NEGATIVE (500 ng/mL); OPIATES (MORPHINE) NEGATIVE (100 ng/mL); OXYCODONE NEGATIVE (100 ng/mL); PHENCYCLIDINE NEGATIVE (25 ng/mL); PROPOXYPHENE NEGATIVE (300 ng/mL); THC CANNABINOIDS NEGATIVE (50 ng/mL); TRICYCLIC ANTIDEPRESSANTS NEGATIVE (300 ng/mL)
[2017-03-09 01:16] LABS: BACTERIA NONE SEEN /HPF; EPITHELIAL CELLS NONE SEEN /HPF; MUCUS TRACE /LPF; WHITE BLOOD CELLS 0-5 /HPF (0-5)
[2017-03-09 01:16] LABS: CHLORIDE 101 mEq/L (99-109); POTASSIUM 2.8 mEq/L (3.7-5.4); SODIUM 138 mEq/L (136-147)
[2017-03-09 01:18] LABS: GLUCOSE 142 mg/dL (70-99)
[2017-03-09 01:19] LABS: ANION GAP 15 MEQ/L (2-14)
[2017-03-09 01:22] LABS: GFR ESTIMATE (CALCULATED) > 59 mL/min/
[2017-03-09 01:23] LABS: UREA NITROGEN (BUN) 4 mg/dL (9-23)
[2017-03-09] MEDS ORDERED: ASPIRIN81 M2 PO (01:37)
[2017-03-09] MEDS ORDERED: NICOTINE GUM4 MG BC (01:39)
[2017-03-09 03:18] VITALS: BP 144/88
[2017-03-09 04:45] LABS: EOSINOPHIL (%) 0.1 % (0-5); HEMATOCRIT 44.3 % (38.0-50.0); IMMATURE GRANULOCYTE (%) 0.5 % (0.0-0.7); IMMATURE GRANULOCYTE COUNT 0.1 K/uL; INSTRUMENT ABS NEUTROPHIL CT 13.9 K/uL; MCH 29.2 PG (29.0-34.0); MCHC 35.2 G/DL (30.0-36.0); MEAN PLAT.VOLUME 11.3 uM^3 (9.0-12.4); MONOCYTE (%) 8.8 % (3-12); MONOCYTE COUNT 1.5 K/uL (0-0.8); NEUTROPHIL (%) 84.1 % (45-76); NEUTROPHIL COUNT 13.9 K/uL (1.8-6.4); PLATELET COUNT 289 K/uL (156-360); RBC DIS.WIDTH-SD 42.2 % (39-53); RED BLOOD COUNT 5.34 M/uL (4.00-5.50); WHITE BLOOD COUNT 16.6 K/uL (4.1-10.2)
[2017-03-09 04:57] LABS: CHLORIDE 105 mEq/L (99-109); SODIUM 136 mEq/L (136-147)
[2017-03-09 04:59] LABS: GLUCOSE 166 mg/dL (70-99)
[2017-03-09 05:00] LABS: ANION GAP 13 MEQ/L (2-14); TOTAL BILIRUBIN 0.5 mg/dL (0.0-1.0)
[2017-03-09 05:01] LABS: ALKALINE PHOSPHATASE 108 IU/L (3-129)
[2017-03-09 05:03] LABS: DIRECT BILIRUBIN 0.2 mg/dL (0.0-0.3); GFR ESTIMATE (CALCULATED) > 59 mL/min/
[2017-03-09 05:04] LABS: LIPASE 5 U/L (1.0-51.0); UREA NITROGEN (BUN) 5 mg/dL (9-23)
[2017-03-09 05:09] LABS: POTASSIUM 3.5 mEq/L (3.7-5.4)
[2017-03-09 05:10] LABS: MAGNESIUM 1.7 mg/dL (1.3-2.7)
[2017-03-09 07:25] VITALS: BP 119/68
[2017-03-09 07:50] LABS: ADD MIUA? NO; BILIRUBIN NEGATIVE; BLOOD NEGATIVE; COLOR YELLOW ((YELLOW)); GLUCOSE (STRIP) NEGATIVE; KETONES NEGATIVE; LEUKOCYTES NEGATIVE; NITRITE NEGATIVE; PROTEIN (STRIP) NEGATIVE; SPECIFIC GRAVITY 1.004 (1.000-1.030); UROBILINOGEN 0.2 MG/DL (0.2-1.0)
[2017-03-09 12:04] VITALS: BP 118/77
[2017-03-09 13:19] LABS: EOSINOPHIL (%) 0 % (0-5); HEMATOCRIT 39.5 % (38.0-50.0); IMMATURE GRANULOCYTE (%) 0.3 % (0.0-0.7); INSTRUMENT ABS NEUTROPHIL CT 9.4 K/uL; LYMPHOCYTE COUNT 1.5 K/uL (1.0-2.8); MCH 29.9 PG (29.0-34.0); MCHC 34.4 G/DL (30.0-36.0); MCV 86.8 FL (86-99); MEAN PLAT.VOLUME 11.4 uM^3 (9.0-12.4); MONOCYTE (%) 8.5 % (3-12); NEUTROPHIL (%) 78.6 % (45-76); NEUTROPHIL COUNT 9.4 K/uL (1.8-6.4); PLATELET COUNT 244 K/uL (156-360); RBC DIS.WIDTH-CV 14.6 % (11.8-14.6); RBC DIS.WIDTH-SD 46.4 % (39-53); RED BLOOD COUNT 4.55 M/uL (4.00-5.50)
[2017-03-09] MEDS ORDERED: OXYCODONE HCL5 MG PO ×2 (13:34→15:28)
[2017-03-09 13:40] LABS: ANION GAP 9 MEQ/L (2-14); CHLORIDE 112 MEQ/L (99-109); GFR ESTIMATE (CALCULATED) > 59 mL/min/; GLUCOSE 149 mg/dL (70-99); SAMPLE HEMOLYSIS CHECK 0; SAMPLE ICTERIC CHECK 0; SAMPLE LIPEMIA CHECK 0; SODIUM 140 MEQ/L (136-147); UREA NITROGEN (BUN) 5 mg/dL (9-23)
[2017-03-09] MEDS ORDERED: LYRICA100 MG PO (15:28)
== END 2017-03-09 16:00 | disposition home or self-care (01) ==
LOC: EME 20:03 → ENPENDDIS 03-09 → EDOF 03-09 02:17 → 5WEST 03-09 02:17 → ENRESERV 03-09 02:19 → 5WEST 03-09 03:08
PROVIDERS: Emergency Medicine; Hospitalist
DX: F11.23 Opioid dependence with withdrawal (principal); E86.0 Dehydration; I10 Essential (primary) hypertension; G89.29 Other chronic pain; K21.9 Gastro-esophageal reflux disease without esophagitis; F41.1 Generalized anxiety disorder; F41.0 Panic disorder [episodic paroxysmal anxiety]; G62.9 Polyneuropathy, unspecified; J44.9 Chronic obstructive pulmonary disease, unspecified; R10.9 Unspecified abdominal pain; F10.21 Alcohol dependence, in remission; E87.6 Hypokalemia; D72.829 Elevated white blood cell count, unspecified; R31.9 Hematuria, unspecified; I95.89 Other hypotension; F17.200 Nicotine dependence, unspecified, uncomplicated; F32.9 Major depressive disorder, single episode, unspecified; Z86.73 Personal history of transient ischemic attack (TIA), and cerebral infarction without residual deficits; Z87.19 Personal history of other diseases of the digestive system; Z82.49 Family history of ischemic heart disease and other diseases of the circulatory system; Z88.8 Allergy status to other drugs, medicaments and biological substances
CPT/HCPCS: 71010; 74176; 80048; 80048 91; 80076; 81003; 83605; 83690; 83735; 85025; 85025 91; 85027; 90839; 93005; 99281; 99285; C9113; G0378; G0480; J2405; J3480; J7030

== ENCOUNTER 2017-05-02 23:44 | Inpatient (IN) | payer OTHER ==
[~2017-05-02] VITALS: Ht 177.8 cm; Wt 80.0 kg
[~2017-05-02 23:44] MED LIST changes: +NICOTINE GUM4 MG BC
[2017-05-03 01:05] LABS: HEMATOCRIT 42.4 % (38.0-50.0); MCH 29.2 PG (29.0-34.0); MCHC 37.3 G/DL (30.0-36.0); MCV 78.4 FL (86-99); MEAN PLAT.VOLUME 11.5 uM^3 (9.0-12.4); PLATELET COUNT 320 K/uL (156-360); RBC DIS.WIDTH-CV 12.2 % (11.8-14.6); RBC DIS.WIDTH-SD 34.7 % (39-53); RED BLOOD COUNT 5.41 M/uL (4.00-5.50); WHITE BLOOD COUNT 17.9 K/uL (4.1-10.2)
[2017-05-03 01:28] LABS: CHLORIDE 70 mEq/L (99-109); POTASSIUM 3.1 mEq/L (3.7-5.4)
[2017-05-03 01:30] LABS: GLUCOSE 131 mg/dL (70-99)
[2017-05-03 01:32] LABS: ANION GAP 25 MEQ/L (2-14)
[2017-05-03 01:34] LABS: GFR ESTIMATE (CALCULATED) 42 mL/min/
[2017-05-03 01:35] LABS: SODIUM 117 mEq/L (136-147); UREA NITROGEN (BUN) 15 mg/dL (9-23)
[2017-05-03 03:40] VITALS: BP 121/63
[2017-05-03 06:11] LABS: ANION GAP 13 MEQ/L (2-14); CHLORIDE 73 MEQ/L (99-109); GFR ESTIMATE (CALCULATED) 56 mL/min/; SAMPLE HEMOLYSIS CHECK 0; SAMPLE ICTERIC CHECK 0; SAMPLE LIPEMIA CHECK 0; UREA NITROGEN (BUN) 16 mg/dL (9-23)
[2017-05-03 06:12] LABS: GLUCOSE 93 mg/dL (70-99)
[2017-05-03 06:14] LABS: SODIUM 118 MEQ/L (136-147)
[2017-05-03 06:20] VITALS: BP 103/62
[2017-05-03 07:27] VITALS: BP 132/76
[2017-05-03 11:41] LABS: ANION GAP 6 MEQ/L (2-14); CHLORIDE 79 MEQ/L (99-109); GFR ESTIMATE (CALCULATED) 48 mL/min/; GLUCOSE 110 mg/dL (70-99); POTASSIUM 3.1 MEQ/L (3.7-5.4); SAMPLE HEMOLYSIS CHECK 0; SAMPLE ICTERIC CHECK 0; SAMPLE LIPEMIA CHECK 0; SODIUM 117 MEQ/L (136-147); UREA NITROGEN (BUN) 20 mg/dL (9-23)
[2017-05-03 12:55] LABS: URIC ACID 5.5 mg/dL (3.1-9.2)
[2017-05-03 12:57] VITALS: BP 103/64
[2017-05-03 15:44] VITALS: BP 102/61
[2017-05-03 17:25] LABS: ADD MIUA? YES; BILIRUBIN NEGATIVE; BLOOD SMALL; COLOR STRAW ((YELLOW)); GLUCOSE (STRIP) NEGATIVE; KETONES NEGATIVE; LEUKOCYTES NEGATIVE; NITRITE NEGATIVE; PROTEIN (STRIP) NEGATIVE; SPECIFIC GRAVITY 1.003 (1.000-1.030); UROBILINOGEN 0.2 MG/DL (0.2-1.0)
[2017-05-03 17:35] LABS: BACTERIA NONE SEEN /HPF; EPITHELIAL CELLS NONE SEEN /HPF; MUCUS NONE SEEN /LPF; RED BLOOD CELLS 0-5 /HPF (0-5); WHITE BLOOD CELLS 0-5 /HPF (0-5)
[2017-05-03 18:28] LABS: ANION GAP 5 MEQ/L (2-14); CHLORIDE 83 MEQ/L (99-109); GFR ESTIMATE (CALCULATED) > 59 mL/min/; GLUCOSE 104 mg/dL (70-99); POTASSIUM 2.9 MEQ/L (3.7-5.4); SAMPLE HEMOLYSIS CHECK 0; SAMPLE ICTERIC CHECK 0; SAMPLE LIPEMIA CHECK 0; SODIUM 120 MEQ/L (136-147); UREA NITROGEN (BUN) 19 mg/dL (9-23)
[2017-05-03 20:50] VITALS: BP 125/78
[2017-05-04] VITALS (7 sets, daily range): BP systolic 96–164; BP diastolic 51–83
[2017-05-04 01:49] LABS: GLUCOSE 85 mg/dL (70-99)
[2017-05-04 01:50] LABS: ANION GAP 10 MEQ/L (2-14)
[2017-05-04 01:53] LABS: GFR ESTIMATE (CALCULATED) > 59 mL/min/
[2017-05-04 01:54] LABS: UREA NITROGEN (BUN) 18 mg/dL (9-23)
[2017-05-04 01:56] LABS: CHLORIDE 91 mEq/L (99-109); SODIUM 127 mEq/L (136-147)
[2017-05-04 05:24] LABS: EOSINOPHIL (%) 1.3 % (0-5); EOSINOPHIL COUNT 0.1 K/uL (0-0.3); HEMATOCRIT 35.3 % (38.0-50.0); IMMATURE GRANULOCYTE (%) 0.2 % (0.0-0.7); INSTRUMENT ABS NEUTROPHIL CT 2.9 K/uL; LYMPHOCYTE COUNT 1.8 K/uL (1.0-2.8); MCH 28.4 PG (29.0-34.0); MCHC 34.6 G/DL (30.0-36.0); MCV 82.3 FL (86-99); MONOCYTE (%) 10.9 % (3-12); MONOCYTE COUNT 0.6 K/uL (0-0.8); NEUTROPHIL (%) 53.5 % (45-76); NEUTROPHIL COUNT 2.9 K/uL (1.8-6.4); RBC DIS.WIDTH-CV 12.8 % (11.8-14.6); RBC DIS.WIDTH-SD 38.4 % (39-53); WHITE BLOOD COUNT 5.4 K/uL (4.1-10.2)
[2017-05-04 06:01] LABS: MEAN PLAT.VOLUME 11.8 uM^3 (9.0-12.4); PLAT.SUFFICIENCY ADEQUATE
[2017-05-04 06:07] LABS: ANION GAP 7 MEQ/L (2-14); GFR ESTIMATE (CALCULATED) > 59 mL/min/; GLUCOSE 80 mg/dL (70-99); POTASSIUM 4.2 MEQ/L (3.7-5.4); SAMPLE HEMOLYSIS CHECK 0; SAMPLE ICTERIC CHECK 0; SAMPLE LIPEMIA CHECK 0; SODIUM 132 MEQ/L (136-147); UREA NITROGEN (BUN) 17 mg/dL (9-23)
[2017-05-04 06:08] LABS: CHLORIDE 95 MEQ/L (99-109)
[2017-05-04 06:12] LABS: PLATELET COUNT 162 K/uL (156-360); RED BLOOD COUNT 4.29 M/uL (4.00-5.50)
[2017-05-04 15:09] LABS: ANION GAP 6 MEQ/L (2-14); CHLORIDE 99 MEQ/L (99-109); GFR ESTIMATE (CALCULATED) > 59 mL/min/; GLUCOSE 98 mg/dL (70-99); POTASSIUM 3.9 MEQ/L (3.7-5.4); SAMPLE HEMOLYSIS CHECK 0; SAMPLE ICTERIC CHECK 0; SAMPLE LIPEMIA CHECK 0; SODIUM 135 MEQ/L (136-147); UREA NITROGEN (BUN) 18 mg/dL (9-23)
[2017-05-04 18:20] LABS: ANION GAP 9 MEQ/L (2-14); CHLORIDE 96 MEQ/L (99-109); POTASSIUM 4.5 MEQ/L (3.7-5.4); SAMPLE HEMOLYSIS CHECK 1; SAMPLE ICTERIC CHECK 0; SAMPLE LIPEMIA CHECK 0; SODIUM 131 MEQ/L (136-147); TOTAL BILIRUBIN 0.2 MG/DL (0.0-1.0)
[2017-05-04 18:44] LABS: ALKALINE PHOSPHATASE 83 IU/L (3-129); GFR ESTIMATE (CALCULATED) > 59 mL/min/; UREA NITROGEN (BUN) 18 mg/dL (9-23)
[2017-05-04 18:47] LABS: GLUCOSE 196 mg/dL (70-99)
[2017-05-05 04:00] VITALS: BP 162/78
[2017-05-05 05:59] LABS: ANION GAP 7 MEQ/L (2-14); CHLORIDE 95 MEQ/L (99-109); GFR ESTIMATE (CALCULATED) > 59 mL/min/; GLUCOSE 130 mg/dL (70-99); POTASSIUM 4.2 MEQ/L (3.7-5.4); SAMPLE HEMOLYSIS CHECK 0; SAMPLE ICTERIC CHECK 0; SAMPLE LIPEMIA CHECK 0; SODIUM 128 MEQ/L (136-147); UREA NITROGEN (BUN) 15 mg/dL (9-23)
[2017-05-05 07:17] VITALS: BP 98/59
[2017-05-05 10:47] VITALS: BP 143/78
== END 2017-05-05 11:28 | disposition home or self-care (01) | DRG 683 ==
LOC: EME → EDBD 23:44 → EDOF 05-03 02:05 → 4EAST 05-03 02:05 → ENRESERV 05-03 02:06 → 4EAST 05-03 03:34
PROVIDERS: Emergency Medicine; Internal Medicine; Internal Medicine Nephrology
DX: N17.9 Acute kidney failure, unspecified (principal); E86.0 Dehydration; E87.1 Hypo-osmolality and hyponatremia; E87.4 Mixed disorder of acid-base balance; E87.6 Hypokalemia; F10.21 Alcohol dependence, in remission; F11.23 Opioid dependence with withdrawal; I10 Essential (primary) hypertension; I45.10 Unspecified right bundle-branch block; J43.9 Emphysema, unspecified; G89.29 Other chronic pain; D72.829 Elevated white blood cell count, unspecified; G62.9 Polyneuropathy, unspecified; M54.9 Dorsalgia, unspecified; M19.90 Unspecified osteoarthritis, unspecified site; K21.9 Gastro-esophageal reflux disease without esophagitis; F41.0 Panic disorder [episodic paroxysmal anxiety]; F41.1 Generalized anxiety disorder; F32.9 Major depressive disorder, single episode, unspecified; F17.210 Nicotine dependence, cigarettes, uncomplicated; Z82.49 Family history of ischemic heart disease and other diseases of the circulatory system; Z86.73 Personal history of transient ischemic attack (TIA), and cerebral infarction without residual deficits; Z87.11 Personal history of peptic ulcer disease
CPT/HCPCS: 71010; 80048; 80048 91; 80053; 81003; 83930; 83935; 84300; 84550; 85025; 85027; 93005; 99281; 99285; J1650; J2060; J2405; J2597; J7030; J7060; J7070

== ENCOUNTER 2017-08-25 14:56 | Emergency (ER) | payer OTHER ==
[~2017-08-25] VITALS: Ht 177.8 cm; Wt 77.2 kg
[2017-08-25 15:39] LABS: BASOPHIL (%) 0.5 % (0-1); EOSINOPHIL (%) 0.6 % (0-5); EOSINOPHIL COUNT 0.1 K/uL (0-0.3); HEMATOCRIT 43.6 % (38.0-50.0); HEMOGLOBIN 15.6 G/DL (12.5-16.6); IMMATURE GRANULOCYTE (%) 0.3 % (0.0-0.7); LYMPHOCYTE (%) 19.1 % (15-42); LYMPHOCYTE COUNT 1.5 K/uL (1.0-2.8); MCH 29.3 PG (29.0-34.0); MCHC 35.8 G/DL (30.0-36.0); MONOCYTE (%) 5.5 % (3-12); MONOCYTE COUNT 0.4 K/uL (0-0.8); NEUTROPHIL COUNT 5.7 K/uL (1.8-6.4); PLATELET COUNT 254 K/uL (156-360); RBC DIS.WIDTH-CV 13.6 % (11.8-14.6); RBC DIS.WIDTH-SD 40.1 % (39-53); RED BLOOD COUNT 5.32 M/uL (4.00-5.50); WHITE BLOOD COUNT 7.8 K/uL (4.1-10.2)
[2017-08-25 15:49] LABS: ALBUMIN 3.9 g/dL (3.2-4.8); CHLORIDE 100 mEq/L (99-109)
[2017-08-25 15:50] LABS: SODIUM 131 mEq/L (136-147)
[2017-08-25 15:52] LABS: GLUCOSE 102 mg/dL (70-99); TOTAL PROTEIN 6.9 g/dL (6.4-8.3)
[2017-08-25 15:54] LABS: TOTAL BILIRUBIN 0.3 mg/dL (0.0-1.0)
[2017-08-25 15:55] LABS: ALKALINE PHOSPHATASE 135 IU/L (3-129); CREATININE 0.8 mg/dL (0.6-1.3); GFR ESTIMATE (CALCULATED) > 59 mL/min/ (58.99-99999)
[2017-08-25 15:57] LABS: AST (GOT) 11 IU/L (2-34); UREA NITROGEN (BUN) 6 mg/dL (9-23)
[2017-08-25 15:58] LABS: ALT (GPT) 5 IU/L (3-49)
[2017-08-25 15:59] LABS: LIPASE 10 U/L (1.0-51.0)
[2017-08-25 16:01] LABS: TROP-I INTERPRETATION NEGATIVE; TROPONIN-I < 0.01 ng/mL (0.0-0.30)
[2017-08-25] MEDS ORDERED: CLONIDINE HCL0.1 MG PO (16:45)
[2017-08-25] MEDS ORDERED: TRAZODONE HCL50 MG PO (16:45)
[2017-08-25] MEDS ORDERED: ZOFRAN ODT4 MG PO (16:45)
[2017-08-25 17:01] VITALS: BP 165/99
== END 2017-08-25 17:02 | disposition home or self-care (01) ==
LOC: EME 14:56
PROVIDERS: Emergency Medicine
DX: F11.23 Opioid dependence with withdrawal (principal); G89.29 Other chronic pain; M54.9 Dorsalgia, unspecified; R94.31 Abnormal electrocardiogram [ECG] [EKG]; I10 Essential (primary) hypertension; J44.9 Chronic obstructive pulmonary disease, unspecified; K21.9 Gastro-esophageal reflux disease without esophagitis; G62.9 Polyneuropathy, unspecified; M19.90 Unspecified osteoarthritis, unspecified site; F32.9 Major depressive disorder, single episode, unspecified; F41.0 Panic disorder [episodic paroxysmal anxiety]; F17.200 Nicotine dependence, unspecified, uncomplicated; Z86.73 Personal history of transient ischemic attack (TIA), and cerebral infarction without residual deficits; Z87.19 Personal history of other diseases of the digestive system; Z79.82 Long term (current) use of aspirin; Z88.6 Allergy status to analgesic agent; Z91.02 Food additives allergy status
CPT/HCPCS: 71046; 80053; 83690; 84484; 85025; 93005; 99281; 99284; J2270; J2405; J7030

== ENCOUNTER 2017-09-13 12:27 | Emergency (ER) | payer OTHER ==
[~2017-09-13] VITALS: Ht 177.8 cm; Wt 79.5 kg
[~2017-09-13 12:27] MED LIST changes: +CLONIDINE HCL0.1 MG PO
[2017-09-13 16:53] LABS: HEMATOCRIT 41.5 % (38.0-50.0); HEMOGLOBIN 14.4 G/DL (12.5-16.6); MCH 29.2 PG (29.0-34.0); MCHC 34.7 G/DL (30.0-36.0); MCV 84.2 FL (86-99); PLATELET COUNT 201 K/uL (156-360); RBC DIS.WIDTH-CV 13.9 % (11.8-14.6); RBC DIS.WIDTH-SD 42.9 % (39-53); RED BLOOD COUNT 4.93 M/uL (4.00-5.50)
[2017-09-13 17:06] LABS: ALBUMIN 3.9 g/dL (3.2-4.8); CHLORIDE 98 mEq/L (99-109); POTASSIUM 4.3 mEq/L (3.7-5.4); SODIUM 134 mEq/L (136-147)
[2017-09-13 17:08] LABS: GLUCOSE 102 mg/dL (70-99); TOTAL PROTEIN 6.6 g/dL (6.4-8.3)
[2017-09-13 17:10] LABS: TOTAL BILIRUBIN 0.3 mg/dL (0.0-1.0)
[2017-09-13 17:11] LABS: SERUM ETHYL ALCOHOL < 10 mg/dL
[2017-09-13 17:12] LABS: ALKALINE PHOSPHATASE 113 IU/L (3-129); CREATININE 0.7 mg/dL (0.6-1.3); GFR ESTIMATE (CALCULATED) > 59 mL/min/ (58.99-99999)
[2017-09-13 17:13] LABS: AST (GOT) 16 IU/L (2-34)
[2017-09-13 17:14] LABS: UREA NITROGEN (BUN) 7 mg/dL (9-23)
[2017-09-13 17:15] LABS: SALICYLATE 6.3 MG/DL (15-30)
[2017-09-13 17:16] LABS: ACETAMINOPHEN (TYLENOL) < 10 mcg/mL (10-30); ALT (GPT) 11 IU/L (3-49)
[2017-09-13 17:46] LABS: APPEARANCE CLEAR ((CLEAR)); BILIRUBIN MODERATE; BLOOD NEGATIVE; COLOR YELLOW ((YELLOW)); GLUCOSE (STRIP) NEGATIVE; KETONES NEGATIVE; LEUKOCYTES NEGATIVE; NITRITE NEGATIVE; PROTEIN (STRIP) 30; SPECIFIC GRAVITY 1.028 (1.000-1.030)
[2017-09-13 17:58] LABS: AMPHETAMINE NEGATIVE (500 ng/mL); BARBITURATES NEGATIVE (200 ng/mL); BENZODIAZEPINES PRESUMPTIVE POSITIVE (150 ng/mL); BUPRENORPHINE NEGATIVE (10 ng/mL); COCAINE NEGATIVE (150 ng/mL); METHADONE NEGATIVE (200 ng/mL); METHAMPHETAMINE NEGATIVE (500 ng/mL); OPIATES (MORPHINE) NEGATIVE (100 ng/mL); OXYCODONE NEGATIVE (100 ng/mL); PHENCYCLIDINE NEGATIVE (25 ng/mL); PROPOXYPHENE NEGATIVE (300 ng/mL); THC CANNABINOIDS NEGATIVE (50 ng/mL); TRICYCLIC ANTIDEPRESSANTS NEGATIVE (300 ng/mL)
[2017-09-13 18:31] LABS: BENZODIAZEPINES, URINE SCREEN Negative (200 ng/mL)
[2017-09-13 18:40] VITALS: BP 149/101
[2017-09-13 19:22] LABS: ICTOTEST NEGATIVE
== END 2017-09-13 18:41 | disposition home or self-care (01) ==
LOC: EME 12:27
PROVIDERS: Emergency Medicine
DX: F11.23 Opioid dependence with withdrawal (principal); M54.9 Dorsalgia, unspecified; G89.29 Other chronic pain; J44.9 Chronic obstructive pulmonary disease, unspecified; K21.9 Gastro-esophageal reflux disease without esophagitis; I10 Essential (primary) hypertension; G62.9 Polyneuropathy, unspecified; F32.9 Major depressive disorder, single episode, unspecified; F41.9 Anxiety disorder, unspecified; F17.200 Nicotine dependence, unspecified, uncomplicated; Z86.73 Personal history of transient ischemic attack (TIA), and cerebral infarction without residual deficits; Z87.19 Personal history of other diseases of the digestive system; Z79.82 Long term (current) use of aspirin; Z88.6 Allergy status to analgesic agent; Z88.5 Allergy status to narcotic agent; Z88.8 Allergy status to other drugs, medicaments and biological substances
CPT/HCPCS: 71045; 80053; 81003; 82140; 84999; 85027; 93005; 99281; 99285; G0480; J2405

== ENCOUNTER 2017-09-15 11:04 | Emergency (ER) | payer OTHER ==
[~2017-09-15] VITALS: Ht 177.8 cm; Wt 78.0 kg
[2017-09-15 13:11] LABS: APPEARANCE CLEAR ((CLEAR)); BILIRUBIN NEGATIVE; BLOOD NEGATIVE; COLOR YELLOW ((YELLOW)); GLUCOSE (STRIP) NEGATIVE; KETONES 5; LEUKOCYTES NEGATIVE; NITRITE NEGATIVE; PROTEIN (STRIP) NEGATIVE
[2017-09-15 13:13] LABS: BASOPHIL COUNT 0.1 K/uL (0-0.1); EOSINOPHIL COUNT 0.1 K/uL (0-0.3); HEMOGLOBIN 15.4 G/DL (12.5-16.6); IMMATURE GRANULOCYTE (%) 0.2 % (0.0-0.7); LYMPHOCYTE (%) 19.7 % (15-42); LYMPHOCYTE COUNT 1.6 K/uL (1.0-2.8); MCH 29.7 PG (29.0-34.0); MCV 84.9 FL (86-99); MONOCYTE (%) 5.2 % (3-12); MONOCYTE COUNT 0.4 K/uL (0-0.8); NEUTROPHIL (%) 72.9 % (45-76); PLATELET COUNT 227 K/uL (156-360); RBC DIS.WIDTH-CV 13.9 % (11.8-14.6); RBC DIS.WIDTH-SD 43.3 % (39-53); RED BLOOD COUNT 5.18 M/uL (4.00-5.50); WHITE BLOOD COUNT 8.2 K/uL (4.1-10.2)
[2017-09-15 13:19] LABS: AMPHETAMINE NEGATIVE (500 ng/mL); BARBITURATES NEGATIVE (200 ng/mL); BENZODIAZEPINES PRESUMPTIVE POSITIVE (150 ng/mL); BUPRENORPHINE NEGATIVE (10 ng/mL); COCAINE NEGATIVE (150 ng/mL); METHADONE NEGATIVE (200 ng/mL); METHAMPHETAMINE NEGATIVE (500 ng/mL); OPIATES (MORPHINE) NEGATIVE (100 ng/mL); OXYCODONE PRESUMPTIVE POSITIVE (100 ng/mL); PHENCYCLIDINE NEGATIVE (25 ng/mL); PROPOXYPHENE NEGATIVE (300 ng/mL); THC CANNABINOIDS NEGATIVE (50 ng/mL); TRICYCLIC ANTIDEPRESSANTS NEGATIVE (300 ng/mL)
[2017-09-15 13:22] LABS: CHLORIDE 102 mEq/L (99-109); POTASSIUM 4.3 mEq/L (3.7-5.4); SODIUM 135 mEq/L (136-147)
[2017-09-15 13:24] LABS: GLUCOSE 100 mg/dL (70-99)
[2017-09-15 13:27] LABS: SERUM ETHYL ALCOHOL < 10 mg/dL
[2017-09-15 13:28] LABS: CREATININE 0.8 mg/dL (0.6-1.3); GFR ESTIMATE (CALCULATED) > 59 mL/min/ (58.99-99999)
[2017-09-15 13:29] LABS: UREA NITROGEN (BUN) 8 mg/dL (9-23)
[2017-09-15 14:01] VITALS: BP 154/76
[2017-09-15 14:19] LABS: BENZODIAZEPINES, URINE SCREEN Negative (200 ng/mL)
== END 2017-09-15 14:02 | disposition home or self-care (01) ==
LOC: EME 11:04
PROVIDERS: Emergency Medicine
DX: G89.29 Other chronic pain (principal); M54.5 Low back pain; F41.0 Panic disorder [episodic paroxysmal anxiety]; Z53.21 Procedure and treatment not carried out due to patient leaving prior to being seen by health care provider; I10 Essential (primary) hypertension; J44.9 Chronic obstructive pulmonary disease, unspecified; K21.9 Gastro-esophageal reflux disease without esophagitis; G62.9 Polyneuropathy, unspecified; M19.90 Unspecified osteoarthritis, unspecified site; G43.909 Migraine, unspecified, not intractable, without status migrainosus; R56.9 Unspecified convulsions; F32.9 Major depressive disorder, single episode, unspecified; F17.200 Nicotine dependence, unspecified, uncomplicated; Z86.73 Personal history of transient ischemic attack (TIA), and cerebral infarction without residual deficits; Z79.82 Long term (current) use of aspirin; Z87.19 Personal history of other diseases of the digestive system; Z88.6 Allergy status to analgesic agent; Z91.018 Allergy to other foods; Z88.5 Allergy status to narcotic agent
CPT/HCPCS: 80048; 81003; 84999; 85025; 90839; G0480; J1885

== ENCOUNTER 2017-09-15 16:29 | Emergency (ER) | payer OTHER | END 2017-09-15 17:21 | disposition left against medical advice (07) | LOC: EME 16:29 | DX: R07.9 Chest pain, unspecified (principal); Z53.21 Procedure and treatment not carried out due to patient leaving prior to being seen by health care provider | CPT/HCPCS: 93005 ==

== ENCOUNTER 2017-09-16 08:45 | Emergency (ER) | payer OTHER ==
[~2017-09-16] VITALS: Ht 177.8 cm; Wt 76.7 kg
[2017-09-16 09:36] LABS: BASOPHIL (%) 0.7 % (0-1); BASOPHIL COUNT 0.1 K/uL (0-0.1); EOSINOPHIL COUNT 0.1 K/uL (0-0.3); HEMOGLOBIN 14.8 G/DL (12.5-16.6); IMMATURE GRANULOCYTE (%) 0.2 % (0.0-0.7); LYMPHOCYTE (%) 16.3 % (15-42); LYMPHOCYTE COUNT 1.4 K/uL (1.0-2.8); MCH 29.9 PG (29.0-34.0); MCHC 36.1 G/DL (30.0-36.0); MCV 82.8 FL (86-99); MONOCYTE (%) 5.5 % (3-12); MONOCYTE COUNT 0.5 K/uL (0-0.8); NEUTROPHIL (%) 76.3 % (45-76); NEUTROPHIL COUNT 6.7 K/uL (1.8-6.4); PLATELET COUNT 213 K/uL (156-360); RBC DIS.WIDTH-CV 13.8 % (11.8-14.6); RBC DIS.WIDTH-SD 41.6 % (39-53); RED BLOOD COUNT 4.95 M/uL (4.00-5.50); WHITE BLOOD COUNT 8.8 K/uL (4.1-10.2)
[2017-09-16 09:47] LABS: CHLORIDE 101 mEq/L (99-109); POTASSIUM 3.7 mEq/L (3.7-5.4); SODIUM 134 mEq/L (136-147)
[2017-09-16 09:48] LABS: GLUCOSE 99 mg/dL (70-99)
[2017-09-16 09:52] LABS: CREATININE 0.7 mg/dL (0.6-1.3); GFR ESTIMATE (CALCULATED) > 59 mL/min/ (58.99-99999)
[2017-09-16 09:53] LABS: UREA NITROGEN (BUN) 5 mg/dL (9-23)
[2017-09-16 10:05] LABS: APPEARANCE CLEAR ((CLEAR)); BILIRUBIN NEGATIVE; BLOOD SMALL; COLOR YELLOW ((YELLOW)); GLUCOSE (STRIP) NEGATIVE; KETONES NEGATIVE; LEUKOCYTES NEGATIVE; NITRITE NEGATIVE; PROTEIN (STRIP) NEGATIVE; SPECIFIC GRAVITY 1.012 (1.000-1.030); UROBILINOGEN 0.2 MG/DL (0.2-1.0)
[2017-09-16 10:08] LABS: BACTERIA NONE SEEN /HPF; EPITHELIAL CELLS NONE SEEN /HPF; MUCUS TRACE /LPF; RED BLOOD CELLS 0-5 /HPF (0-5); WHITE BLOOD CELLS 0-5 /HPF (0-5)
[2017-09-16 12:11] VITALS: BP 168/96
[2017-09-17] MEDS ORDERED: ZOFRAN ODT4 MG PO (19:40)
[2017-09-17] MEDS ORDERED: CATAPRES0.1 MG PO (19:40)
== END 2017-09-16 12:12 | disposition home or self-care (01) ==
LOC: EME → EDBD 08:45 → EME 12:12
PROVIDERS: Emergency Medicine
DX: M54.5 Low back pain (principal); E86.0 Dehydration; Z72.0 Tobacco use; Z88.6 Allergy status to analgesic agent; Z88.5 Allergy status to narcotic agent; Z88.8 Allergy status to other drugs, medicaments and biological substances
CPT/HCPCS: 80048; 81003; 85025; 99281; 99285; J2405; J3010; J7030

== ENCOUNTER 2017-09-17 19:13 | Emergency (ER) | payer OTHER ==
[~2017-09-17] VITALS: Ht 177.8 cm; Wt 73.5 kg
[2017-09-17] MEDS ORDERED: ZOFRAN ODT4 MG PO (19:40)
[2017-09-17] MEDS ORDERED: CATAPRES0.1 MG PO (19:40)
[2017-09-17 19:55] VITALS: BP 133/99
== END 2017-09-17 19:56 | disposition home or self-care (01) ==
LOC: EME 19:13
DX: G89.29 Other chronic pain (principal); M54.9 Dorsalgia, unspecified; F11.23 Opioid dependence with withdrawal; I10 Essential (primary) hypertension; J44.9 Chronic obstructive pulmonary disease, unspecified; G62.9 Polyneuropathy, unspecified; K21.9 Gastro-esophageal reflux disease without esophagitis; G43.909 Migraine, unspecified, not intractable, without status migrainosus; R56.9 Unspecified convulsions; M19.90 Unspecified osteoarthritis, unspecified site; F41.0 Panic disorder [episodic paroxysmal anxiety]; F41.9 Anxiety disorder, unspecified; F32.9 Major depressive disorder, single episode, unspecified; F17.200 Nicotine dependence, unspecified, uncomplicated; Z79.82 Long term (current) use of aspirin; Z86.73 Personal history of transient ischemic attack (TIA), and cerebral infarction without residual deficits; Z87.19 Personal history of other diseases of the digestive system; Z88.6 Allergy status to analgesic agent; Z91.018 Allergy to other foods; Z88.5 Allergy status to narcotic agent; Z88.8 Allergy status to other drugs, medicaments and biological substances
CPT/HCPCS: 99281; 99284